=== PATIENT | female | born 1950 | race Caucasian/White ===

== ENCOUNTER 2017-07-17 20:15 | Emergency (ER) | payer BC, OTHER ==
[~2017-07-17] VITALS: Ht 160 cm; Wt 70.5 kg
[2017-07-17 20:19] VITALS: BP 164/76
[2017-07-17] MEDS ORDERED: DONEPEZIL HCL10 MG PO (20:23)
== END 2017-07-17 22:50 | disposition left against medical advice (07) ==
LOC: EME 20:15
DX: R21 Rash and other nonspecific skin eruption (principal); Z53.21 Procedure and treatment not carried out due to patient leaving prior to being seen by health care provider

== ENCOUNTER 2017-11-05 12:26 | Emergency (ER) | payer BC, OTHER ==
[~2017-11-05] VITALS: Ht 162.6 cm; Wt 69.3 kg
[~2017-11-05 12:26] MED LIST: DONEPEZIL HCL10 MG PO
[2017-11-05 12:46] LABS: BASOPHIL (%) 0.5 % (0-1); EOSINOPHIL (%) 1.4 % (0-5); EOSINOPHIL COUNT 0.1 K/uL (0-0.3); HEMATOCRIT 32.6 % (36.0-46.0); HEMOGLOBIN 10.3 G/DL (11.9-15.5); IMMATURE GRANULOCYTE (%) 0.3 % (0.0-0.7); LYMPHOCYTE (%) 22.2 % (15-42); LYMPHOCYTE COUNT 1.7 K/uL (1.0-2.8); MCH 24.4 PG (29.0-34.0); MCHC 31.6 G/DL (30.0-36.0); MCV 77.3 FL (83-99); MONOCYTE (%) 8.2 % (3-12); MONOCYTE COUNT 0.6 K/uL (0-0.8); NEUTROPHIL (%) 67.4 % (45-76); NEUTROPHIL COUNT 5.2 K/uL (1.8-6.4); PLATELET COUNT 294 K/uL (156-360); RBC DIS.WIDTH-CV 16.2 % (11.8-14.6); RBC DIS.WIDTH-SD 45.5 % (39-53); RED BLOOD COUNT 4.22 M/uL (3.80-5.20); WHITE BLOOD COUNT 7.7 K/uL (4.1-10.2)
[2017-11-05 12:54] LABS: CHLORIDE 107 mEq/L (99-109); POTASSIUM 3.9 mEq/L (3.7-5.4); SODIUM 141 mEq/L (136-147)
[2017-11-05 12:56] LABS: GLUCOSE 115 mg/dL (70-99); PTT 23.6 SEC (25-37)
[2017-11-05 13:00] LABS: CREATININE 0.9 mg/dL (0.6-1.3); GFR ESTIMATE (CALCULATED) > 59 mL/min/
[2017-11-05 13:01] LABS: UREA NITROGEN (BUN) 24 mg/dL (9-23)
[2017-11-05 13:07] LABS: TROP-I INTERPRETATION NEGATIVE; TROPONIN-I < 0.01 ng/mL (0.0-0.30)
[2017-11-05 15:23] LABS: TROP-I INTERPRETATION NEGATIVE; TROPONIN-I < 0.01 ng/mL (0.0-0.30)
[2017-11-05 15:37] VITALS: BP 136/79
== END 2017-11-05 15:48 ==
LOC: EME 12:26
PROVIDERS: Emergency Medicine
DX: R07.89 Other chest pain (principal); I10 Essential (primary) hypertension; F03.90 Unspecified dementia, unspecified severity, without behavioral disturbance, psychotic disturbance, mood disturbance, and anxiety
CPT/HCPCS: 71045; 80048; 84484; 85025; 85610; 85730; 93005; 99281; 99285